=== PATIENT | female | born 1980 | race African-American/Black ===

== ENCOUNTER 2023-01-08 06:10 | Day surgery (SDC) | payer OTHER ==
[~2023-01-08] VITALS: Ht 167.6 cm; Wt 88.5 kg
[~2023-01-08 06:10] MED LIST: SINGULAIR10 MG PO; SYMBICORT 16010.2 GM IH
== END 2023-01-08 13:15 | disposition home or self-care (01) ==
LOC: CIR.AMB 06:10
PROVIDERS: ATTEND Surgery
DX: K80.10 Calculus of gallbladder with chronic cholecystitis without obstruction (principal); R59.0 Localized enlarged lymph nodes; I10 Essential (primary) hypertension; Z86.16 Personal history of COVID-19; Z20.822 Contact with and (suspected) exposure to COVID-19